=== PATIENT | male | born 1960 | race Caucasian/White ===

== ENCOUNTER 2018-05-10 07:11 | Inpatient (IN) | payer MEDICARE, MEDICAID, OTHER | END 2018-05-13 21:40 | disposition left against medical advice (07) | LOC: ER 07:12 → SUR 3N 05-12 15:47 → ED HOLD 15:26 → CICU 2S 17:34 | PROC: 5A1945Z Respiratory Ventilation, 24-96 Consecutive Hours (ICD-10-PCS; principal; ~2018-05-10) | DX: A41.9 Sepsis, unspecified organism (principal); J96.00 Acute respiratory failure, unspecified whether with hypoxia or hypercapnia; M62.82 Rhabdomyolysis; F15.10 Other stimulant abuse, uncomplicated ==